=== PATIENT | male | born 1960 | race Caucasian/White ===

== ENCOUNTER 2023-12-28 08:28 | Day surgery (SDC) | payer BC ==
--- NOTE | 2023-12-28 07:53 | HP ---
DATE OF SURGERY: 12/28/2023 HISTORY OF PRESENT ILLNESS: The patient is a 63-year-old with last colonoscopy five years ago and had some polyps. No bloody stools. No change in bowel movements. No new pain. Family history positive for colon cancer. PAST MEDICAL HISTORY: Hypertension, gastroesophageal reflux disease, anxiety, depression, diabetes type II. PAST SURGICAL HISTORY: Colonoscopy in the past. MEDICATIONS: Escitalopram, olmesartan, Jardiance, Sildenafil, pantoprazole, metformin. ALLERGIES: NKDA. FAMILY HISTORY: Diabetes. SOCIAL HISTORY: Former smoker. He does drink beer and he uses marijuana. REVIEW OF SYSTEMS: Twelve systems reviewed. No chest pain or palpitations. Other systems negative or noncontributory as above and per preadmission questionnaire. PHYSICAL EXAMINATION: Height 5 feet 9 inches. BMI 30.27. GENERAL: No acute distress. HEENT: Sclerae nonicteric. EOMI. Oral mucous membranes moist. NECK: No JVD. CHEST: Equal excursion, nonlabored breathing. CVS: Regular rate and rhythm. ABDOMEN: Soft. EXTREMITIES: No cyanosis or edema. NEURO: Alert, oriented, moving extremities symmetrically. RECTAL: Deferred timed to endoscopy exam. PSYCH: Appropriate mood and affect. SKIN: Dry. IMPRESSION: History of polyps, family history of colon cancer, needs follow up screening colonoscopy. The patient was shown the risk sheet, explained the procedure in detail including but not limited to risk of bleeding or infection, risk of bowel injury or perforation, risk of missed or nondiagnosis or incomplete exam possibly requiring barium enema, other studies or procedures, general risk of anesthesia or sedation, risk of bowel prep but not limited to, consent obtained. Will proceed with outpatient under MAC anesthesia colonoscopy. Otherwise, continue medications for anxiety, hypertension, reflux, diabetes, anxiety and depression. Will proceed with outpatient colonoscopy under MAC anesthesia.
[~2023-12-28 08:28] MED LIST: Lactated Ringers 1,000 ML IV ONE
[2023-12-28] MEDS: Lactated Ringers 1,000 ML IV SCH (08:40)
[2023-12-28 08:46] VITALS: RESP 18
[2023-12-28 09:12] LABS: ANION GAP 14.4 MEQ/L (5-15); Calcium 9.6 mg/dL (8.4-10.2); Creatinine 1 1.16 mg/dL (0.66-1.25); EST GLOMERULAR FILTRATION RATE 71.2 ML/MIN
[2023-12-28 09:20] LABS: Potassium 4.8 mmol/L (3.5-5.1)
[2023-12-28] MEDS ORDERED: DIPRIVAN 200 MG/20 ML IV ONE ×2 (10:51→11:07)
[2023-12-28] MEDS ORDERED: Versed 2 MG/2 ML Injection ONE (10:51)
[2023-12-28 11:54] VITALS: TEMP 97.1
[2023-12-28 12:06] VITALS: BP 107/65; PULSE 67; O2SAT 100
--- NOTE | 2023-12-29 08:24 | OP ---
SURGERY DATE/TIME: 12/28/2023 1055 PREOPERATIVE DIAGNOSIS: History of polyps, family history of colon cancer, needs follow up screening colonoscopy. POSTOPERATIVE DIAGNOSES: 1) Withdrawal time approximately 16 minutes. 2) ASA Class III. PROCEDURES: 1) Colonoscopy to cecum. 2) Hot snare polypectomy approximately 1 cm pedunculated polyp distal sigmoid colon with ink spot tattooing over location. 3) Hot snare polypectomy transverse colon polyp. 4) Hot biopsy polypectomy additional 3 or 4 transverse colon polyps. 5) Hot biopsy additional sigmoid colon polyps and four early rectal polyps versus hyperplastic lesion. SURGEON: Dr. Caden Ferguson M.D. ANESTHESIA: MAC. QUANTITATIVE BLOOD LOSS: Minimal. INDICATIONS: As noted above, consent obtained. DESCRIPTION OF PROCEDURE AND FINDINGS: The patient taken to the endoscopy room. MAC anesthesia induced. After official time out and no disagreement with planned procedure, digital rectal exam did not reveal any rectal masses. He had some minimal hemorrhoids. Video colonoscope inserted and passed up through the tortuous sigmoid, descending, transverse and ascending colon around to the cecum. Appendiceal orifice and ileocecal valve well visualized. Prep overall was good. The scope slowly and carefully withdrawn. There were no signs of any large polyps, masses or obstructing lesions. The prep was good in the majority of the colon. It was fair down the rectal area, had a little bit of debris but overall good prep. After photo documenting the appendiceal orifice and valve the scope carefully withdrawn over the next 16 minutes. In the transverse colon removed a 2.5 to 3 mm polyp with hot snare polypectomy. Good hemostasis noted. Additional transverse colon polyps removed with hot biopsy polypectomy. Good hemostasis noted. The scope then carefully pulled back to sigmoid colon. Small polyp removed with hot biopsy polypectomy. Down in the rectum, four small early polyps versus hyperplastic lesion removed hot biopsy polypectomy. Good hemostasis noted. There was a 1 cm sized pedunculated polyp on a stalk on a fold was able to be snared and get at the base and this was able to be removed completely with hot snare polypectomy. It was about 1 cm in size and spot tattooed the location, this was in the distal sigmoid just right above the rectosigmoid area. Good hemostasis noted. The scope is withdrawn. The patient tolerated the procedure well. There were no immediate complications. I will look for family.
== END 2023-12-28 12:09 | disposition home or self-care (01) ==
LOC: SDC 08:28
PROVIDERS: ATTEND Surgery
DX: Z12.11 Encounter for screening for malignant neoplasm of colon (principal); Z09 Encounter for follow-up examination after completed treatment for conditions other than malignant neoplasm; Z86.010 Personal history of colon polyps; Z80.0 Family history of malignant neoplasm of digestive organs; K64.8 Other hemorrhoids; D12.5 Benign neoplasm of sigmoid colon; D12.3 Benign neoplasm of transverse colon
CPT/HCPCS: 36415; 80048; 83036; 93005; J2250; J2704